=== PATIENT | male | born 1955 | race Caucasian/White ===

== ENCOUNTER 2017-12-11 11:27 | Inpatient (IN) | payer BC, OTHER ==
[2017-12-11 12:53] LABS: ADD MAN DIFF? NO
[2017-12-11 13:05] LABS: BASO % 1 % (0-3); EOS # 0.2 x10^3/uL (0.0-0.7); EOS % 5 % (0-3); HEMATOCRIT 42.9 % (39.0-53.0); HEMOGLOBIN 14.8 g/dL (13.0-17.5); LYMPH # 1.9 x10^3/uL (1.0-4.8); LYMPH % 37 % (24-48); MEAN CORPUSCULAR HEMOGLOBIN 32 pg (25-35); MEAN CORPUSCULAR HGB CONC 35 g/dL (31-37); MEAN CORPUSCULAR VOLUME 92 fL (79-100); MONO # 0.5 x10^3/uL (0.0-1.1); MONO % 9 % (0-9); NEUT # 2.6 x10^3uL (1.8-7.7); NEUT % 49 % (31-73); PLATELET COUNT 212 x10^3/uL (140-400); RED BLOOD COUNT 4.68 x10^6/uL (4.30-5.70); RED CELL DISTRIBUTION WIDTH 12.6 % (11.5-14.5); WHITE BLOOD COUNT 5.2 x10^3/uL (4.0-11.0)
[2017-12-11] MEDS: MECLIZINE HCL 12.5 MG TABLET. PO ×3 (13:06→22:06)
[2017-12-11] MEDS: ONDANSETRON PF 4 MG/2 ML VIAL. IV (13:08)
[2017-12-11 13:09] LABS: ANION GAP 8 (6-14); BLOOD UREA NITROGEN 19 mg/dL (8-26); BUN/CREATININE RATIO 19 (6-20); CARBON DIOXIDE 29 mmol/L (21-32); CHLORIDE 101 mmol/L (98-107); GLUCOSE 122 mg/dL (70-99); POTASSIUM 4.1 mmol/L (3.5-5.1); SODIUM 138 mmol/L (136-145)
[2017-12-11 13:19] LABS: ALBUMIN 4.1 g/dL (3.4-5.0); ALBUMIN/GLOBULIN RATIO 1.4 (1.0-1.7); ALK PHOS 64 U/L (46-116); ALT (SGPT) 47 U/L (16-63); AST (SGOT) 26 U/L (15-37); TOTAL BILIRUBIN 0.4 mg/dL (0.2-1.0); TOTAL PROTEIN 7.1 g/dL (6.4-8.2)
[2017-12-11 13:20] LABS: TROPONINI < 0.017 ng/mL (0.000-0.055)
[2017-12-11 13:31] LABS: BILIRUBIN,URINE NEGATIVE (NEG); CLARITY,URINE CLEAR; COLOR,URINE YELLOW; GLUCOSE,URINE NEGATIVE (NEG); NITRITE,URINE NEGATIVE (NEG); PH,URINE 5.5; PROTEIN,URINE NEGATIVE (NEG-TRACE); UROBILINOGEN,URINE 0.2 mg/dL (0.2 mg/dL)
[2017-12-11 13:36] LABS: BACTERIA,URINE 0 /HPF (0-FEW); RBC,URINE 0 /HPF (0-2); SQUAMOUS EPITHELIAL CELL,UR FEW /LPF
[2017-12-11] MEDS ORDERED: ONDANSETRON PF 4 MG/2 ML VIAL. IV ×2 (14:30→16:30)
[2017-12-11] MEDS: GADOBUTROL 10 MMOL/10 ML VIAL IV (15:46)
[2017-12-11] MEDS ORDERED: ACETAMINOPHEN 325 MG TABLET. PO (16:30)
[2017-12-11] MEDS ORDERED: traMADol 50 MG TABLET PO (16:30)
[2017-12-11] MEDS ORDERED: MECLIZINE HCL 12.5 MG TABLET. PO (16:30)
[2017-12-11] MEDS ORDERED: MORPHINE SULFATE 4 MG/ML DISP.SYRIN. IV (16:30)
[2017-12-11] MEDS ORDERED: hydrALAZINE 20 MG/ML VIAL. IVP (16:30)
[2017-12-11] MEDS ORDERED: DOCUSATE SODIUM 100 MG CAPSULE. PO (16:30)
[2017-12-11 17:13] LABS: LACTIC ACID 0.8 mmol/L (0.4-2.0)
[2017-12-11] MEDS: THIAMINE 100 MG TABLET. PO (17:37)
[2017-12-11 17:52] LABS: THYROID STIM HORMONE (TSH) 2.246 uIU/mL (0.358-3.74)
[2017-12-11 18:26] LABS: VITAMIN-B12 701 pg/mL (247-911)
[2017-12-11] MEDS ORDERED: clonazePAM 1 MG TABLET PO (18:45)
[2017-12-11 19:17] LABS: BARBITURATES NEG (NEG); BENZODIAZEPINES NEG (NEG); CANNABINOIDS NEG (NEG); COCAINE NEG (NEG); METHADONE NEG (NEG); OPIATES NEG (NEG); PHENCYCLIDINE NEG (NEG)
[2017-12-11 19:18] LABS: AMPHETAMINE/METHAMPHETAMINE NEG (NEG); ETHANOL, URINE NEG (NEG)
[2017-12-11] MEDS: ENOXAPARIN 40 MG/0.4 ML SYRINGE. SQ (22:06)
[2017-12-11] MEDS: IBUPROFEN 400 MG TABLET. PO (22:21)
[2017-12-12 06:13] LABS: ADD MAN DIFF? NO
[2017-12-12 06:34] LABS: BASO % 1 % (0-3); EOS # 0.3 x10^3/uL (0.0-0.7); EOS % 7 % (0-3); HEMATOCRIT 43.3 % (39.0-53.0); HEMOGLOBIN 14.8 g/dL (13.0-17.5); LYMPH # 1.8 x10^3/uL (1.0-4.8); LYMPH % 41 % (24-48); MEAN CORPUSCULAR HEMOGLOBIN 31 pg (25-35); MEAN CORPUSCULAR HGB CONC 34 g/dL (31-37); MEAN CORPUSCULAR VOLUME 92 fL (79-100); MONO # 0.4 x10^3/uL (0.0-1.1); MONO % 9 % (0-9); NEUT # 1.8 x10^3uL (1.8-7.7); NEUT % 42 % (31-73); PLATELET COUNT 202 x10^3/uL (140-400); RED BLOOD COUNT 4.73 x10^6/uL (4.30-5.70); RED CELL DISTRIBUTION WIDTH 12.3 % (11.5-14.5); WHITE BLOOD COUNT 4.3 x10^3/uL (4.0-11.0)
[2017-12-12 06:45] LABS: ALBUMIN 3.7 g/dL (3.4-5.0); ALBUMIN/GLOBULIN RATIO 1.2 (1.0-1.7); ALK PHOS 60 U/L (46-116); ALT (SGPT) 42 U/L (16-63); ANION GAP 6 (6-14); AST (SGOT) 21 U/L (15-37); BLOOD UREA NITROGEN 19 mg/dL (8-26); BUN/CREATININE RATIO 17 (6-20); CALCIUM 8.8 mg/dL (8.5-10.1); CARBON DIOXIDE 30 mmol/L (21-32); CHLORIDE 102 mmol/L (98-107); CHOLESTEROL 229 mg/dL (0-200); CREATININE 1.1 mg/dL (0.7-1.3); GFR 68.1; GLUCOSE 150 mg/dL (70-99); HDLC 41 mg/dL (40-60); LDLC 141 mg/dL (0-100); NON-HDL CHOLESTEROL 188 mg/dL (0-129); POTASSIUM 4.2 mmol/L (3.5-5.1); SODIUM 138 mmol/L (136-145); TOTAL BILIRUBIN 0.4 mg/dL (0.2-1.0); TOTAL PROTEIN 6.9 g/dL (6.4-8.2); TRIGLYCERIDES 235 mg/dL (0-150); VLDLC 47 mg/dL (0-40)
[2017-12-12 06:46] LABS: CHOLESTEROL/HDL RATIO 5.6
[2017-12-12] MEDS: IBUPROFEN 400 MG TABLET. PO (09:00)
[2017-12-12] MEDS: MECLIZINE HCL 12.5 MG TABLET. PO (09:00)
[2017-12-12] MEDS: LISINOPRIL 10 MG TABLET PO (09:01)
[2017-12-12] MEDS: CITALOPRAM 10 MG TABLET. PO (09:01)
[2017-12-12] MEDS: THIAMINE 100 MG TABLET. PO (09:01)
== END 2017-12-12 15:00 | disposition home or self-care (01) | DRG 312 ==
LOC: ER 11:27 → 5 SOUTH 14:15
DX: R55 Syncope and collapse (principal); E66.01 Morbid (severe) obesity due to excess calories; R42 Dizziness and giddiness; E78.00 Pure hypercholesterolemia, unspecified; E78.5 Hyperlipidemia, unspecified; G47.33 Obstructive sleep apnea (adult) (pediatric); I10 Essential (primary) hypertension; G89.29 Other chronic pain; F10.20 Alcohol dependence, uncomplicated; Z79.82 Long term (current) use of aspirin; Z79.899 Other long term (current) drug therapy; Z82.49 Family history of ischemic heart disease and other diseases of the circulatory system; Z68.34 Body mass index [BMI] 34.0-34.9, adult
CPT/HCPCS: 36415; 70450; 70544; 70553; 71045; 80053; 80061; 80307; 81001; 82607; 83605; 84443; 84484; 85025; 93005; 96374; 96375; 97161-GP; 97165-GO; 99285; 99285-25; A9585; J1650; J2405; J8597